=== PATIENT | male | born 1995 | race Caucasian/White ===

== ENCOUNTER 2017-10-11 17:36 | Emergency (ER) | payer SELFPAY ==
[~2017-10-11] VITALS: Ht 180.3 cm; Wt 87.0 kg
[2017-10-11] MEDS ORDERED: BACITRACIN ZINC OINT UDPKT TOP ONE (23:00)
[2017-10-11] MEDS ORDERED: ONDANSETRON 4MG ODT PO ONE (23:00)
[2017-10-11] MEDS ORDERED: KETOROLAC 30MG/ML VIAL IM ONE (23:00)
[2017-10-11] MEDS ORDERED: LIDOCAINE HCL 1% 20ML VIAL (Pyxis) INJ INFIL ONE (23:00)
[2017-10-12 00:43] VITALS: BP 131/74
== END 2017-10-12 00:44 | disposition home or self-care (01) ==
LOC: ER 19:47
DX: L03.115 Cellulitis of right lower limb (principal); L02.415 Cutaneous abscess of right lower limb
CPT/HCPCS: 10060; 96372; 99283; J1885; J3490; Q0162; X7700; Z7610

== ENCOUNTER 2017-10-13 10:22 | Emergency (ER) | payer SELFPAY ==
[~2017-10-13] VITALS: Ht 180.3 cm; Wt 86.0 kg
[2017-10-13 10:58] VITALS: BP 104/70
[2017-10-13] MEDS ORDERED: LIDOCAINE HCL/EPINEPHRINE 1%-EPI 1:100,000 30 ML VIAL INFIL ONE (13:15)
== END 2017-10-13 14:11 | disposition home or self-care (01) ==
LOC: ER 11:07
DX: Z48.817 Encounter for surgical aftercare following surgery on the skin and subcutaneous tissue (principal); L03.116 Cellulitis of left lower limb
CPT/HCPCS: 99282; Z7610

== ENCOUNTER 2017-10-15 08:41 | Emergency (ER) | payer SELFPAY ==
[~2017-10-15] VITALS: Ht 180.3 cm; Wt 87.0 kg
[2017-10-15 08:52] VITALS: BP 111/54
== END 2017-10-15 11:43 | disposition home or self-care (01) ==
LOC: ER 09:17
DX: L02.416 Cutaneous abscess of left lower limb (principal)
CPT/HCPCS: 99282; Z7610

== ENCOUNTER 2017-10-19 15:27 | Emergency (ER) | payer OTHER ==
[~2017-10-19] VITALS: Ht 175.3 cm; Wt 75.0 kg
[2017-10-19 16:39] VITALS: BP 105/59
== END 2017-10-19 20:47 | disposition home or self-care (01) ==
LOC: ER 15:27
DX: Z48.00 Encounter for change or removal of nonsurgical wound dressing (principal)
CPT/HCPCS: 99282